=== PATIENT | male | born 1970 | race Caucasian/White ===

== ENCOUNTER 2019-12-02 03:59 | Emergency (ER) | payer OTHER ==
[2019-12-02 04:32] VITALS: BP 130/91; PULSE 95; TEMP 98.7; BMI 28.5
--- NOTE | 2019-12-02 04:48 | PDOC ---
History of Present Illness - General Chief Complaint: Pain, Acute Stated Complaint: R KNEE PAIN/ YFD Time Seen by Provider: 12/02/19 04:12 History Source: Patient Exam Limitations: No Limitations - History of Present Illness Initial Comments: 12/02/19 06:03 49 yo male pmh of arthritis in the right knee with chronic pain presents to the ED with right knee pain. 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 Pt states he has been dealing with pain in the right knee for over 2 years, followed by Ortho who state he will need a knee replacement in a few years. Pt denies hearing a crack or pop, changes in ROM, instability in the knee, weakness into the lower leg, LOC or hitting head. Denies CP, SOB. Past History - Medical History Allergies/Adverse Reactions: Allergies Allergy/AdvReac Type Severity Reaction Status Date / Time iodine Allergy Intermediate Verified 12/02/19 04:53 - Psycho-Social/Smoking History Smoking History: Never smoked Have you smoked in the past 12 months: No Information on smoking cessation initiated: No - Substance Abuse Hx (Audit-C & DAST Scrn) How often the patient has a drink containing alcohol: Monthly or less Number of drinks the patient has on a typical day: 1 or 2 How often the patient has six or more drinks on one occasion: Less than monthly Score: In Men: 4 or > Positive; In Women: 3 or > Positive: 2 Screen Result (Pos requires Nsg. Audit-10AR): Negative In the last yr the pt used illegal drug/Rx for NonMed reason: Yes Score: Yes response is considered Positive: 1 Screen Result (Positive result requires Nsg. DAST-10): Positive Review of Systems - Review of Systems Constitutional: Yes: Symptoms Reported HEENTM: Yes: Symptoms Reported Respiratory: Yes: Symptoms reported Cardiac (ROS): Yes: Symptoms Reported ABD/GI: Yes: Symptoms Reported : Yes: Symptoms Reported Musculoskeletal: Yes: Symptoms Reported Integumentary: Yes: Symptoms Reported Neurological: Yes: Symptoms reported *Physical Exam - Vital Signs Last Vital Signs Temp Pulse Resp BP Pulse Ox 98.7 F 95 H 20 130/91 100 12/02/19 04:16 12/02/19 04:16 12/02/19 04:16 12/02/19 04:16 12/02/19 04:16 - Physical Exam General Appearance: Yes: Nourished, Appropriately Dressed. No: Apparent Distress HEENT: positive: EOMI Neck: positive: Supple Respiratory/Chest: positive: Lungs Clear, Normal Breath Sounds Cardiovascular: positive: Regular Rhythm, Regular Rate Vascular Pulses: Dorsalis-Pedis (R): 4+, Doralis-Pedis (L): 4+ Gastrointestinal/Abdominal: positive: Flat, Soft Extremity: positive: Normal Capillary Refill, Normal Inspection, Normal Range of Motion, Other (ambulates and able to weight bare on right knee, no deformity noted. Pont tenderness to medial and lateral knee joint line) Integumentary: positive: Normal Color, Dry, Warm Neurologic: positive: Fully Oriented, Alert, Normal Mood/Affect Medical Decision Making - Medical Decision Making 12/02/19 06:07 49 yo male pmh of arthritis in the right knee with chronic pain presents to the ED with right knee pain. 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 Pt states he has been dealing with pain in the right knee for over 2 years, followed by Ortho who state he will need a knee replacement in a few years. Pt denies hearing a crack or pop, changes in ROM, instability in the knee, weakness into the lower leg, LOC or hitting head. Denies CP, SOB. vitals WNL Pt states he does not want imaging at this time and can follow up with his Orthopedic Doctor Pt given 800 mg of motrin which relieved most of the pain Pt able to ambulate to the bathroom without difficulty Pt safe for DC home Discharge - Discharge Information Problems reviewed: Yes Clinical Impression/Diagnosis: Knee pain Condition: Stable Disposition: HOME - Admission No - Follow up/Referral - Patient Discharge Instructions Patient Printed Discharge Instructions: DI for Knee Pain Additional Instructions: Please make an appointment to see your Primary Doctor and Orthopedic Doctor within 48 hours. Take over the counter Motrin as needed for pain. Rest, ice, compress and elevate your knee. Speak with your Primary Doctor about Physical therapy. Return to the ER for new or concerning symptoms. Thank you - Post Discharge Activity
[2019-12-02] MEDS ORDERED: IBUPROFEN 400 MG TABLET (FP) PO ONE (05:00)
--- NOTE | 2019-12-02 05:07 | PDOC ---
Attending Attestation - Resident Resident Name: DharmeshCésar - ED Attending Attestation I have performed the following: I have examined & evaluated the patient, The case was reviewed & discussed with the resident, I agree w/resident's findings & plan - HPI HPI: 12/02/19 23:37 49 yo male pmh of arthritis in the right knee with chronic pain presents to the ED with right knee pain. 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 Pt states he has been dealing with pain in the right knee for over 2 years, due to cartilage loss and [id number] situation, followed by Ortho who states he will need a knee replacement in a few years. Pt denies hearing a crack or pop, changes in ROM, instability in the knee, weakness into the lower leg, LOC or hitting head. Denies CP, SOB. - Physicial Exam PE: 12/02/19 23:39 Agree with resident exam Pt has right knee pain only with valgus stress; no pain with varus stress and normal drawer sign and lachmann's test. Pt is able to ambulate with a slight limp. Rest of exam is normal heart and lungs clear abd soft NT ND no spine tenderness Neuro grossly intact throughout. - Medical Decision Making 12/02/19 23:41 Home with analgesics and with ortho followup Discharge - Discharge Information Problems reviewed: Yes Clinical Impression/Diagnosis: Knee pain Condition: Stable Disposition: HOME - Follow up/Referral - Patient Discharge Instructions Patient Printed Discharge Instructions: DI for Knee Pain Additional Instructions: Please make an appointment to see your Primary Doctor and Orthopedic Doctor within 48 hours. Take over the counter Motrin as needed for pain. Rest, ice, compress and elevate your knee. Speak with your Primary Doctor about Physical therapy. Return to the ER for new or concerning symptoms. Thank you - Post Discharge Activity
== END 2019-12-02 05:48 | disposition home or self-care (01) ==
LOC: JER 03:59
DX: M25.561 Pain in right knee (principal)
CPT/HCPCS: 99284-25